=== PATIENT | female | born 1980 | race Caucasian/White ===

== ENCOUNTER 2018-10-01 18:23 | Inpatient (IN) | payer BC ==
[~2018-10-01] VITALS: Ht 172.7 cm; Wt 197.8 kg
[2018-10-01 18:42] VITALS: BP_SYST 151
[2018-10-01] MEDS ORDERED: LIDOCAINE 1% 10 MG/ML, 20 ML MDV INJ ONE (21:15)
[2018-10-01] MEDS ORDERED: KETOROLAC TROMETHAMINE 30 MG VIAL IVP ONE (22:00)
[2018-10-01] MEDS ORDERED: CLINDAMYCIN 900 mg/50mL D5W 50 ML IV ONE (22:00)
[2018-10-01] MEDS ORDERED: NACL 0.9% 1,000 ML IV ONE (22:00)
[2018-10-01 22:15] LABS: EOSINOPHILS # (AUTO) 0.3 K/uL (0.0-0.4); HEMOGLOBIN 11.6 g/dL (12.0-16.0); MONOCYTES # (AUTO) 0.7 K/uL (0.0-1.0); WHITE BLOOD COUNT (AUTO) 15.3 K/uL (4.8-10.8)
[2018-10-01] MEDS ORDERED: METR500T PO (22:15)
[2018-10-01 22:20] LABS: BASOPHILS # (AUTO) 0.1 K/uL (0.0-0.2); BASOPHILS % (AUTO) 0.5 % (0.0-2.0); EOSINOPHILS % (AUTO) 1.8 % (0.0-4.0); HEMATOCRIT 36.3 % (36-48); LYMPHOCYTES % (AUTO) 6.3 % (20.5-51.5); MEAN CORPUSCULAR HEMOGLOBIN 28 pg (27-31); MEAN CORPUSCULAR HGB CONC 32 % (32-36); MEAN CORPUSCULAR VOLUME 88 fL (79.0-98.0); MONOCYTES % (AUTO) 4.6 % (1.7-9.3); NEUTROPHILS # (AUTO) 13.2 K/uL (1.8-7.7); NEUTROPHILS % (AUTO) 86.8 % (40.0-70.0); PLATELET COUNT (AUTO) 340 K/uL (130-430); RED BLOOD CELL COUNT(AUTO) 4.14 MIL/uL (4.2-6.2); RED CELL DISTRIBUTION WIDTH 13.7 % (9.0-15.0)
[2018-10-01 22:29] LABS: PROTHROMBIN TIME 9.9 SECS (9.5-12.5)
[2018-10-01 22:37] LABS: CALCIUM 8.7 mg/dL (8.4-11.0); CREATININE 0.97 mg/dL (0.55-1.30); POTASSIUM 3.3 mmol/L (3.5-5.1)
[2018-10-01 22:41] LABS: ALBUMIN 2.4 g/dL (3.4-4.8); TOTAL BILIRUBIN 0.6 mg/dL (0.0-1.0)
[2018-10-01] MEDS ORDERED: MORPHINE 4 MG/ML INJ. SYRINGE IVP PRN (22:45)
[2018-10-01] MEDS ORDERED: ACETAMINOPHEN 325 MG TABLET PO PRN (22:45)
[2018-10-01] MEDS ORDERED: ONDANSETRON HCL 4 MG/2 ML VIAL IVP PRN (22:45)
[2018-10-01] MEDS ORDERED: cloNIDine HCL 0.1 MG TABLET PO PRN (23:00)
[2018-10-01 23:03] VITALS: BP_SYST 129
[2018-10-02] MEDS ORDERED: POTASSIUM CHLORIDE 20 MEQ TAB.PRT.SR PO SCH
[2018-10-02] MEDS ORDERED: CLINDAMYCIN 600 mg/50mL D5W 50 ML IV ONE (00:35)
[2018-10-02] MEDS ORDERED: cefTRIAXone 1 GM IVPB PREMIX 50 ML IV ONE (00:35)
[2018-10-02] MEDS: cefTRIAXone 1 GM in D5W 50 ML IV SCH ×3 (00:48→22:07)
[2018-10-02 01:08] VITALS: BP_SYST 129
[2018-10-02 02:24] LABS: BILIRUBIN,URINE NEGATIVE (NEGATIVE); BLOOD, URINE 3+ (NEGATIVE); CLARITY/URINE HAZY (CLEAR); COLOR,URINE YELLOW (YELLOW); GLUCOSE,URINE NEGATIVE (NEGATIVE); KETONES,URINE NEGATIVE (NEGATIVE); LEUKOCYTE ESTERASE ,URINE 3+ (NEGATIVE); NITRITE, URINE POSITIVE (NEGATIVE); PROTEIN URINE 1+ (NEGATIVE); UROBILINOGEN,URINE 0.2 (0.2-1.0)
[2018-10-02 02:44] LABS: BACTERIA,URINE MANY /HPF (None Seen); MUCUS,URINE 2+ /LPF (None Seen); RBC,URINE 20-50 /HPF (0-3); WBC,URINE >100 /HPF (0-3)
[2018-10-02] MEDS: CLINDAMYCIN 600 mg/50mL D5W 50 ML IV SCH ×4 (06:08→23:58)
[2018-10-02 07:27] LABS: FREE T4 (FREE THYROXINE) 0.4 ng/dL (0.6-1.6); THYROID STIMULATING HORMONE 2.23 uIu/mL (0.34-4.82)
[2018-10-02 07:43] VITALS: BP_SYST 125
[2018-10-02] MEDS: KETOROLAC TROMETHAMINE 15 MG VIAL IVP PRN ×2 (10:24→17:51)
[2018-10-02] MEDS ORDERED: VANCOMYCIN HCL 1 GM/NS PREMIX 250 ML IV ONE (12:30)
[2018-10-02 12:35] VITALS: BP_SYST 115
[2018-10-02 13:49] LABS: BASOPHILS # (AUTO) 0.1 K/uL (0.0-0.2); BASOPHILS % (AUTO) 0.4 % (0.0-2.0); EOSINOPHILS # (AUTO) 0.4 K/uL (0.0-0.4); EOSINOPHILS % (AUTO) 2.8 % (0.0-4.0); HEMOGLOBIN 11.2 g/dL (12.0-16.0); LYMPHOCYTES # (AUTO) 1.4 K/uL (1.0-5.5); LYMPHOCYTES % (AUTO) 10.7 % (20.5-51.5); MEAN CORPUSCULAR HEMOGLOBIN 29 pg (27-31); MEAN CORPUSCULAR HGB CONC 33 % (32-36); MEAN CORPUSCULAR VOLUME 86 fL (79.0-98.0); MONOCYTES # (AUTO) 1.2 K/uL (0.0-1.0); MONOCYTES % (AUTO) 9.2 % (1.7-9.3); NEUTROPHILS # (AUTO) 10.3 K/uL (1.8-7.7); NEUTROPHILS % (AUTO) 76.9 % (40.0-70.0); PLATELET COUNT (AUTO) 340 K/uL (130-430); RED BLOOD CELL COUNT(AUTO) 3.94 MIL/uL (4.2-6.2); RED CELL DISTRIBUTION WIDTH 13.9 % (9.0-15.0); WHITE BLOOD COUNT (AUTO) 13.4 K/uL (4.8-10.8)
[2018-10-02 14:10] LABS: CALCIUM 8.6 mg/dL (8.4-11.0); CREATININE 1.12 mg/dL (0.55-1.30); POTASSIUM 3.5 mmol/L (3.5-5.1)
[2018-10-02 16:43] VITALS: BP_SYST 140
[2018-10-02 20:00] VITALS: BP_SYST 121
[2018-10-03 00:25] VITALS: BP_SYST 120
[2018-10-03] MEDS: CLINDAMYCIN 600 mg/50mL D5W 50 ML IV SCH ×4 (06:20→23:11)
[2018-10-03 08:02] LABS: BASOPHILS # (AUTO) 0.1 K/uL (0.0-0.2); BASOPHILS % (AUTO) 0.5 % (0.0-2.0); EOSINOPHILS # (AUTO) 0.3 K/uL (0.0-0.4); EOSINOPHILS % (AUTO) 3.1 % (0.0-4.0); HEMATOCRIT 33.2 % (36-48); HEMOGLOBIN 10.7 g/dL (12.0-16.0); LYMPHOCYTES # (AUTO) 1.3 K/uL (1.0-5.5); LYMPHOCYTES % (AUTO) 12.5 % (20.5-51.5); MEAN CORPUSCULAR HEMOGLOBIN 29 pg (27-31); MEAN CORPUSCULAR HGB CONC 32 % (32-36); MONOCYTES % (AUTO) 9.6 % (1.7-9.3); NEUTROPHILS # (AUTO) 7.7 K/uL (1.8-7.7); NEUTROPHILS % (AUTO) 74.3 % (40.0-70.0); PLATELET COUNT (AUTO) 313 K/uL (130-430); RED BLOOD CELL COUNT(AUTO) 3.77 MIL/uL (4.2-6.2); RED CELL DISTRIBUTION WIDTH 14.4 % (9.0-15.0); WHITE BLOOD COUNT (AUTO) 10.4 K/uL (4.8-10.8)
[2018-10-03 08:04] LABS: MEAN CORPUSCULAR VOLUME 88 fL (79.0-98.0)
[2018-10-03 08:06] LABS: CALCIUM 8.2 mg/dL (8.4-11.0); CREATININE 0.86 mg/dL (0.55-1.30); POTASSIUM 4.8 mmol/L (3.5-5.1)
[2018-10-03 08:08] VITALS: BP_SYST 125
[2018-10-03] MEDS: cefTRIAXone 1 GM in D5W 50 ML IV SCH ×2 (11:06→22:29)
[2018-10-03 12:15] VITALS: BP_SYST 127
[2018-10-03 16:14] VITALS: BP_SYST 128
[2018-10-03 19:05] VITALS: BP_SYST 128
[2018-10-03] MEDS: KETOROLAC TROMETHAMINE 15 MG VIAL IVP PRN (21:25)
[2018-10-04 00:09] VITALS: BP_SYST 126
[2018-10-04] MEDS: CLINDAMYCIN 600 mg/50mL D5W 50 ML IV SCH ×4 (05:31→23:41)
[2018-10-04 08:00] VITALS: BP_SYST 139
[2018-10-04] MEDS: cefTRIAXone 1 GM in D5W 50 ML IV SCH ×2 (11:28→22:45)
[2018-10-04 11:31] VITALS: BP_SYST 132
[2018-10-04 15:21] VITALS: BP_SYST 126
[2018-10-04 19:21] VITALS: BP_SYST 128
[2018-10-04] MEDS: KETOROLAC TROMETHAMINE 15 MG VIAL IVP PRN (21:46)
[2018-10-05 00:31] VITALS: BP_SYST 124
[2018-10-05] MEDS: CLINDAMYCIN 600 mg/50mL D5W 50 ML IV SCH ×2 (05:40→12:27)
[2018-10-05 08:00] VITALS: BP_SYST 138
[2018-10-05] MEDS: cefTRIAXone 1 GM in D5W 50 ML IV SCH (10:41)
[2018-10-05 12:05] VITALS: BP_SYST 132
[2018-10-05] MEDS ORDERED: CHOLECALCIFEROL (VITAMIN D3) 2,000 UNIT TABLET PO ONE (13:30)
[2018-10-05] MEDS: AMPICILLIN SODIUM 2 GM in NS 100 ML IV SCH ×3 (14:28→23:04)
[2018-10-05] MEDS: KETOROLAC TROMETHAMINE 15 MG VIAL IVP PRN (14:47)
[2018-10-05 16:24] VITALS: BP_SYST 132
[2018-10-05 19:50] VITALS: BP_SYST 141
[2018-10-06] MEDS: AMPICILLIN SODIUM 2 GM in NS 100 ML IV SCH ×3 (06:39→17:59)
[2018-10-06 07:18] LABS: BASOPHILS # (AUTO) 0.1 K/uL (0.0-0.2); BASOPHILS % (AUTO) 0.7 % (0.0-2.0); EOSINOPHILS # (AUTO) 0.3 K/uL (0.0-0.4); EOSINOPHILS % (AUTO) 3.6 % (0.0-4.0); HEMATOCRIT 33.5 % (36-48); LYMPHOCYTES # (AUTO) 1.6 K/uL (1.0-5.5); LYMPHOCYTES % (AUTO) 19.9 % (20.5-51.5); MEAN CORPUSCULAR HEMOGLOBIN 28 pg (27-31); MEAN CORPUSCULAR HGB CONC 33 % (32-36); MEAN CORPUSCULAR VOLUME 86 fL (79.0-98.0); MONOCYTES # (AUTO) 0.5 K/uL (0.0-1.0); MONOCYTES % (AUTO) 5.9 % (1.7-9.3); NEUTROPHILS # (AUTO) 5.4 K/uL (1.8-7.7); NEUTROPHILS % (AUTO) 69.9 % (40.0-70.0); PLATELET COUNT (AUTO) 406 K/uL (130-430); RED BLOOD CELL COUNT(AUTO) 3.89 MIL/uL (4.2-6.2); RED CELL DISTRIBUTION WIDTH 14.1 % (9.0-15.0); WHITE BLOOD COUNT (AUTO) 7.9 K/uL (4.8-10.8)
[2018-10-06 07:49] LABS: CALCIUM 8.6 mg/dL (8.4-11.0); CREATININE 0.8 mg/dL (0.55-1.30); POTASSIUM 4.1 mmol/L (3.5-5.1)
[2018-10-06 07:50] LABS: TOTAL IRON BIND. CAPACITY 258 ug/dL (250-450)
[2018-10-06 08:00] VITALS: BP_SYST 117
[2018-10-06] MEDS ORDERED: CHOLECALCIFEROL (VITAMIN D3) 2,000 UNIT TABLET PO SCH (09:00)
[2018-10-06] MEDS ORDERED: MULTIVITS,CA,MINERALS/IRON/FA 1 TABLET PO SCH (09:00)
[2018-10-06 12:04] VITALS: BP_SYST 138
[2018-10-06 16:50] VITALS: BP_SYST 131
[2018-10-06 18:46] VITALS: BP_SYST 131
[2018-10-06] MEDS ORDERED: DOXYCYCLINE HYCLATE 100 MG CAPSULE PO SCH (21:00)
== END 2018-10-06 19:21 | disposition home or self-care (01) | DRG 854 ==
LOC: SED 18:23 → SMU 22:26
PROVIDERS: ADMIT Internal Medicine; ATTEND Internal Medicine
PROC: 0U9MXZZ Drainage of Vulva, External Approach (ICD-10-PCS; principal; 2018-10-06)
DX: A41.9 Sepsis, unspecified organism (principal); N76.4 Abscess of vulva; E44.0 Moderate protein-calorie malnutrition; Z68.44 Body mass index [BMI] 60.0-69.9, adult; N39.0 Urinary tract infection, site not specified; N75.1 Abscess of Bartholin's gland; N76.0 Acute vaginitis; N76.2 Acute vulvitis; E66.01 Morbid (severe) obesity due to excess calories; D64.9 Anemia, unspecified; E87.6 Hypokalemia; R73.03 Prediabetes
CPT/HCPCS: 36415; 71045; 80048; 80053; 81000-TC; 83036; 83540-TC; 83550-TC; 83605; 84439; 84443-TC; 84703; 85025; 85610-TC; 85730-TC; 87040-TC; 87070-TC; 87081; 87086; 87186-TC; 96365; 96375; 99285; J0290; J0696; J1885; J2001; J2270; J3370; J3490; J7030; J7050; J7060